=== PATIENT | female | born 1960 | race Caucasian/White ===

== ENCOUNTER 2021-10-20 08:20 | Emergency (ER) | payer SELFPAY ==
[~2021-10-20] VITALS: Ht 162.6 cm; Wt 68.5 kg
[2021-10-20 08:28] VITALS: BP 117/74
--- NOTE | 2021-10-20 09:02 | NUR ---
60 Y/O FEMALE BIB SELF FOR CACTUS NEEDLE PRICK TO ABDOMEN X2 WEEKS AGO. PER PATIENT "THE NEEDLE IS STUCK IN HER ABDOMEN AND IS PULSATING PAIN". PATIENT HAS 3/10 PAIN LEVEL. PATIENT HAS SLIGHT REDNESS TO ABDOMEN. NO BLEEDING OR SWELLING. MEDICAL HISTORY: DM, HYPERLIPIDEMIA NKDA
--- NOTE | 2021-10-20 09:10 | NUR ---
DR. MUNOZ AT BEDSIDE EVALUATING PATIENT.
--- NOTE | 2021-10-20 09:30 | NUR ---
RADIOLOGY AT BEDSIDE
--- NOTE | 2021-10-20 10:10 | NUR ---
DR. MUNOZ RE-EVALUATING PATIENT AT BEDSIDE.
[2021-10-20] MEDS ORDERED: NAPR-1704 PO (10:14)
[2021-10-20] MEDS ORDERED: [UNRECOGNIZED DRUG - CODE] PO (10:14)
--- NOTE | 2021-10-20 10:32 | NUR ---
Patient discharged with v/s stable. Written and verbal after care instructions given. Patient alert, oriented and verbalized understanding of instructions. Ambulatory with steady gait. All questions addressed prior to discharge. ID band removed. Patient advised to follow up with PMD. Rx of NAPROXEN AND SLEEP-AID given. Opportunity to ask questions provided and answered.
--- NOTE | 2021-10-20 10:33 | NUR ---
Chart checked and completed. The patient's care was reviewed and supervised by Chary Arzola RN.
== END 2021-10-20 10:32 | disposition home or self-care (01) ==
LOC: MED 08:20
DX: R10.11 Right upper quadrant pain (principal); Z79.899 Other long term (current) drug therapy
CPT/HCPCS: 74018; 99283